=== PATIENT | female | born 1965 | race Caucasian/White ===

== ENCOUNTER 2019-01-07 18:32 | Inpatient (IN) | payer MEDICAID ==
[~2019-01-07] VITALS: Ht 172.7 cm; Wt 86.4 kg
[2019-01-07 19:09] LABS: BASOPHILS % (AUTO) 0.1 % (0-1); EOSINOPHILS % (AUTO) 0 % (0-6); HEMATOCRIT 39.6 % (35.0-45.0); HEMOGLOBIN 12.8 g/dl (12.0-16.0); LYMPHOCYTES # (AUTO) 2.1 X10'3 (1.1-4.8); LYMPHOCYTES % (AUTO) 35.3 % (21-51); MEAN CORPUSCULAR HEMOGLOBIN 25.4 PG (27.0-31.0); MEAN CORPUSCULAR HGB CONC 32.2 g/dL (33.0-36.5); MEAN CORPUSCULAR VOLUME 78.9 FL (78-98); MEAN PLATELET VOLUME 9.7 FL (7.4-10.4); MONOCYTES # (AUTO) 0.6 X10'3 (0-0.9); MONOCYTES % (AUTO) 10.2 % (2-12); NEUTROPHILS # (AUTO) 3.2 X10'3 (1.8-7.7); NEUTROPHILS % (AUTO) 54.4 % (42-75); PLATELET COUNT 189 X10'3 (140-440); RED BLOOD COUNT 5.02 X10'6 (4.20-5.60); WHITE BLOOD COUNT 5.9 X10'3 (4.5-11.0)
[2019-01-07 19:21] LABS: PARTIAL THROMBOPLASTIN TIME 28 SECONDS (22-32)
[2019-01-07 19:25] LABS: ALANINE AMINOTRANSFERASE 24 U/L (12-78); ALBUMIN/GLOBULIN RATIO 1.2 (1.1-1.5); ALKALINE PHOSPHATASE 99 IU/L (46-116); ANION GAP 9 (8-16); ASPARTATE AMINO TRANSFERASE 28 U/L (10-37); BILIRUBIN,TOTAL 0.4 MG/DL (0.1-1.0); BLOOD UREA NITROGEN 18 MG/DL (7-18); BUN/CREATININE RATIO 13.5 (6.6-38.0); CALCIUM 8.7 MG/DL (8.5-10.1); CHLORIDE 104 MMOL/L (99-107); CREATININE 1.33 MG/DL (0.40-0.90); GLUCOSE 87 MG/DL (70-104); POTASSIUM 4.2 MMOL/L (3.5-5.1); SODIUM 140 MMOL/L (135-145); TOTAL CARBON DIOXIDE 27.5 MMOL/L (24-32); TOTAL PROTEIN 7.4 G/DL (6.4-8.2); eGFR 42 ML/MIN
[2019-01-07 20:47] LABS: CHOL/HDL RATIO 3.9 (0.00-4.99); CHOLESTEROL 231 MG/DL (0-200); HDL CHOLESTEROL 59 MG/DL (35-60); LDL CHOLESTEROL 150 MG/DL (50-100); TRIGLYCERIDES 87 MG/DL (20-135)
[2019-01-07 21:21] LABS: D-DIMER 0.45 MG/L FEU (0-0.50)
[2019-01-07] MEDS ORDERED: acetaminophen 325mg tablet PO ONE (21:25)
--- NOTE | 2019-01-07 21:50 | NUR ---
Patient to CT, MD ordered Tylenol for pain and if that does not help will put in order for [place].
[2019-01-07] MEDS ORDERED: ALBU6.7H9 INH (22:49)
[2019-01-07] MEDS ORDERED: PRED5TAB PO (22:49)
[2019-01-07] MEDS ORDERED: CYAN-51 PO (22:49)
[2019-01-07] MEDS ORDERED: TRAM50TA2 PO (22:49)
[2019-01-07] MEDS ORDERED: LEVO88TA2 PO (22:49)
[2019-01-07] MEDS ORDERED: HYDR50CA PO (22:49)
[2019-01-07] MEDS ORDERED: MELO15TA13 PO (22:49)
[2019-01-07] MEDS ORDERED: SPIR25TA PO (22:49)
[2019-01-07] MEDS ORDERED: AMMO225L14 TOP (22:49)
[2019-01-07] MEDS ORDERED: MECL12.584 PO (22:49)
[2019-01-07] MEDS ORDERED: ERGO500041 PO (22:49)
[2019-01-07] MEDS ORDERED: MYCO500T PO (22:49)
[2019-01-07] MEDS ORDERED: EST1T PO (22:49)
[2019-01-07] MEDS ORDERED: CELE-193 PO (22:49)
[2019-01-07] MEDS ORDERED: FLUO20CA39 PO (22:49)
[2019-01-07] MEDS ORDERED: POTA8TAB8 PO (22:49)
[2019-01-07] MEDS ORDERED: OMEP40CA13 PO (22:49)
[2019-01-07] MEDS ORDERED: CHOL200074 PO (22:49)
[2019-01-07] MEDS ORDERED: FURO-149 PO (22:49)
[2019-01-07] MEDS ORDERED: ESOM40CA49 PO (22:49)
[2019-01-07] MEDS ORDERED: HYDR200T80 PO (22:49)
[2019-01-07] MEDS ORDERED: potassium Cl 20 mEq SR tablet PO PRN ×2 (22:50)
[2019-01-07] MEDS ORDERED: magnesium hydroxide 30ml (MOM) UD suspension PO PRN (22:50)
[2019-01-07] MEDS ORDERED: potassium CL 10mEq/100ml bag 100 ML IV PRN ×2 (22:50)
[2019-01-07] MEDS ORDERED: mag hydrox/Alum hydrox/simeth 30ml oral suspension PO PRN (22:50)
[2019-01-07] MEDS ORDERED: magnesium 4gm in 100ml NS 100 ML IV PRN (22:50)
[2019-01-07] MEDS ORDERED: acetaminophen 325mg tablet PO PRN ×2 (22:50)
[2019-01-07] MEDS ORDERED: ondansetron/PF 4mg/2ml inj IV PRN (22:50)
[2019-01-07] MEDS ORDERED: magnesium Cl slow-release 64mg tablet PO PRN (22:50)
[2019-01-07] MEDS ORDERED: magnesium 2GM in 50ml NS 50 ML IV PRN (22:50)
[2019-01-07] MEDS ORDERED: morphine 2 MG/ML inj. syringe IV ONE (23:35)
[2019-01-07] MEDS ORDERED: normal saline 1000ml 1,000 ML IV ONE (23:35)
[2019-01-07] MEDS ORDERED: AMMONIUM LACTATE TOP SCH (23:50)
[2019-01-07] MEDS ORDERED: HYDROcodone/acetaminophen 5mg/325mg tablet PO PRN (23:55)
[2019-01-07] MEDS ORDERED: albuterol 2.5 MG/3 ML nebule NEB PRN (23:55)
[2019-01-07] MEDS ORDERED: morphine 4 MG/ML inj SYRINge IV PRN (23:55)
[2019-01-08] VITALS (7 sets, daily range): BP systolic 93–125; BP diastolic 45–66
[2019-01-08] MEDS ORDERED: estradiol 1mg tablet PO ONE (01:55)
[2019-01-08] MEDS ORDERED: hydroxychloroquine 200mg tablet PO ONE (01:55)
[2019-01-08] MEDS ORDERED: FLUoxetine 20mg capsule PO ONE (01:55)
[2019-01-08] MEDS ORDERED: hydrOXYzine 25 MG tablet PO ONE (01:55)
[2019-01-08] MEDS ORDERED: celeCOXIB 100mg capsule PO ONE (01:55)
[2019-01-08] MEDS ORDERED: pantoprazole 40mg Tablet.DR PO ONE (01:55)
[2019-01-08] MEDS ORDERED: potassium chloride 8mEq ER tablet PO ONE (01:55)
[2019-01-08] MEDS ORDERED: mycophenolate mofetil 250mg capsule PO ONE (02:00)
[2019-01-08 06:02] LABS: BASOPHILS % (AUTO) 0.1 % (0-1); EOSINOPHILS % (AUTO) 0.1 % (0-6); HEMATOCRIT 34.5 % (35.0-45.0); HEMOGLOBIN 11.1 g/dl (12.0-16.0); LYMPHOCYTES # (AUTO) 2.9 X10'3 (1.1-4.8); LYMPHOCYTES % (AUTO) 54.4 % (21-51); MEAN CORPUSCULAR HEMOGLOBIN 25.4 PG (27.0-31.0); MEAN CORPUSCULAR HGB CONC 32.2 g/dL (33.0-36.5); MEAN CORPUSCULAR VOLUME 78.8 FL (78-98); MEAN PLATELET VOLUME 10.2 FL (7.4-10.4); MONOCYTES # (AUTO) 0.6 X10'3 (0-0.9); MONOCYTES % (AUTO) 11.5 % (2-12); NEUTROPHILS # (AUTO) 1.8 X10'3 (1.8-7.7); NEUTROPHILS % (AUTO) 33.9 % (42-75); PLATELET COUNT 173 X10'3 (140-440); RED BLOOD COUNT 4.38 X10'6 (4.20-5.60); RED CELL DISTRIBUTION WIDTH 15.1 % (11.5-14.5); WHITE BLOOD COUNT 5.3 X10'3 (4.5-11.0)
[2019-01-08 06:15] LABS: ALBUMIN 2.9 G/DL (3.4-5.0); ANION GAP 6 (8-16); BLOOD UREA NITROGEN 17 MG/DL (7-18); BUN/CREATININE RATIO 14.7 (6.6-38.0); CALCIUM 8.1 MG/DL (8.5-10.1); CHLORIDE 110 MMOL/L (99-107); CREATININE 1.16 MG/DL (0.40-0.90); GLUCOSE 88 MG/DL (70-104); MAGNESIUM 1.9 MG/DL (1.5-2.4); POTASSIUM 4.7 MMOL/L (3.5-5.1); SODIUM 143 MMOL/L (135-145); TOTAL CARBON DIOXIDE 27.3 MMOL/L (24-32); TROPONIN I < 0.04 NG/ML (0.0-0.05); eGFR 49 ML/MIN
[2019-01-08 06:57] LABS: PLATELET ESTIMATE NORMAL; TOTAL CELLS COUNTED 100
[2019-01-08] MEDS: predniSONE 5mg tablet PO SCH (08:00)
[2019-01-08] MEDS: aspirin 81mg tablet.DR PO SCH (08:00)
[2019-01-08] MEDS: cyanocobalamin 500mcg tablet PO SCH (08:00)
[2019-01-08] MEDS: enoxaparin 40mg/0.4ml syringe SQ SCH (08:00)
[2019-01-08] MEDS: vitamin D (cholecalciferol) 1,000 unit tablet PO SCH (08:00)
[2019-01-08] MEDS: K and/or MAG REPLACEMENT MC SCH (08:00)
[2019-01-08] MEDS: mycophenolate mofetil 250mg capsule PO SCH ×2 (08:00→20:16)
[2019-01-08] MEDS: levoTHYROXINE 88mcg tablet PO SCH (08:00)
[2019-01-08] MEDS ORDERED: MELOXICAM 7.5 MG PO SCH (08:00)
[2019-01-08] MEDS ORDERED: non-formulary drug (Esomeprazole Magnesium (Nexium) 1 CAP) PO SCH (08:00)
[2019-01-08] MEDS ORDERED: LORazepam 0.5 MG tablet PO PRN (09:45)
[2019-01-08] MEDS ORDERED: pneumococcal 23-VAL P-sac vacc 25 mcg/0.5ml vial IMVAC ONE (10:00)
[2019-01-08] MEDS: morphine 2 MG/ML inj. syringe IV PRN ×3 (10:00→19:42)
[2019-01-08] MEDS: furosemide 20MG tablet PO SCH (15:42)
--- NOTE | 2019-01-08 18:00 | NUR ---
Received report from Sadie MARTE. assumed care of patient.
--- NOTE | 2019-01-08 18:30 | NUR ---
Problems reprioritized. Patient report given, questions answered & plan of care reviewed with ESTUARDO Carter.
[2019-01-08] MEDS: FLUoxetine 20mg capsule PO SCH (20:16)
[2019-01-08] MEDS: potassium chloride 8mEq ER tablet PO SCH (20:17)
[2019-01-08] MEDS: hydrOXYzine 25 MG tablet PO SCH (20:17)
[2019-01-08] MEDS: hydroxychloroquine 200mg tablet PO SCH (20:18)
[2019-01-08] MEDS: pantoprazole 40mg Tablet.DR PO SCH (20:18)
[2019-01-08] MEDS: celeCOXIB 100mg capsule PO SCH (20:18)
[2019-01-08] MEDS: estradiol 1mg tablet PO SCH (20:21)
[2019-01-09] VITALS (7 sets, daily range): BP systolic 98–110; BP diastolic 51–84
--- NOTE | 2019-01-09 06:00 | NUR ---
Gave report to Sadie MARTE.
--- NOTE | 2019-01-09 06:15 | NUR ---
Patient in room ORTHO 4012. I have received report from and had the opportunity to ask questions and assume patient care ESTUARDO Carter.
[2019-01-09] MEDS: K and/or MAG REPLACEMENT MC SCH (08:00)
[2019-01-09] MEDS: mycophenolate mofetil 250mg capsule PO SCH ×2 (08:00→20:34)
[2019-01-09 08:02] LABS: BASOPHILS % (AUTO) 0.1 % (0-1); EOSINOPHILS % (AUTO) 0 % (0-6); HEMATOCRIT 33.2 % (35.0-45.0); HEMOGLOBIN 10.7 g/dl (12.0-16.0); LYMPHOCYTES # (AUTO) 2.4 X10'3 (1.1-4.8); LYMPHOCYTES % (AUTO) 47.1 % (21-51); MEAN CORPUSCULAR HEMOGLOBIN 25.7 PG (27.0-31.0); MEAN CORPUSCULAR HGB CONC 32.3 g/dL (33.0-36.5); MEAN CORPUSCULAR VOLUME 79.5 FL (78-98); MEAN PLATELET VOLUME 10.1 FL (7.4-10.4); MONOCYTES # (AUTO) 0.6 X10'3 (0-0.9); MONOCYTES % (AUTO) 10.9 % (2-12); NEUTROPHILS # (AUTO) 2.1 X10'3 (1.8-7.7); NEUTROPHILS % (AUTO) 41.9 % (42-75); PLATELET COUNT 156 X10'3 (140-440); RED BLOOD COUNT 4.17 X10'6 (4.20-5.60); RED CELL DISTRIBUTION WIDTH 15.7 % (11.5-14.5); WHITE BLOOD COUNT 5.1 X10'3 (4.5-11.0)
[2019-01-09] MEDS: furosemide 20MG tablet PO SCH (08:27)
[2019-01-09 08:28] LABS: ALBUMIN 2.8 G/DL (3.4-5.0); ANION GAP 3 (8-16); BLOOD UREA NITROGEN 17 MG/DL (7-18); BUN/CREATININE RATIO 13.4 (6.6-38.0); CALCIUM 7.8 MG/DL (8.5-10.1); CHLORIDE 110 MMOL/L (99-107); CREATININE 1.27 MG/DL (0.40-0.90); GLUCOSE 86 MG/DL (70-104); POTASSIUM 4.4 MMOL/L (3.5-5.1); SODIUM 143 MMOL/L (135-145); TOTAL CARBON DIOXIDE 29.9 MMOL/L (24-32); eGFR 44 ML/MIN
[2019-01-09] MEDS: aspirin 81mg tablet.DR PO SCH (08:28)
[2019-01-09] MEDS: predniSONE 5mg tablet PO SCH (08:28)
[2019-01-09] MEDS: cyanocobalamin 500mcg tablet PO SCH (08:28)
[2019-01-09] MEDS: pantoprazole 40mg Tablet.DR PO SCH ×2 (08:28→20:35)
[2019-01-09] MEDS: levoTHYROXINE 88mcg tablet PO SCH (08:28)
[2019-01-09] MEDS: vitamin D (cholecalciferol) 1,000 unit tablet PO SCH (08:29)
[2019-01-09] MEDS ORDERED: aspirin 325mg tablet PO SCH (08:30)
[2019-01-09] MEDS: enoxaparin 40mg/0.4ml syringe SQ SCH (08:35)
[2019-01-09] MEDS: morphine 2 MG/ML inj. syringe IV PRN (16:19)
[2019-01-09] MEDS: atorvastatin 20mg tablet PO SCH (17:11)
[2019-01-09] MEDS: celeCOXIB 100mg capsule PO SCH (20:34)
[2019-01-09] MEDS: hydroxychloroquine 200mg tablet PO SCH (20:34)
[2019-01-09] MEDS: estradiol 1mg tablet PO SCH (20:34)
[2019-01-09] MEDS: FLUoxetine 20mg capsule PO SCH (20:35)
[2019-01-09] MEDS: potassium chloride 8mEq ER tablet PO SCH (20:35)
[2019-01-09] MEDS: hydrOXYzine 25 MG tablet PO SCH (20:35)
[2019-01-09] MEDS ORDERED: TRAZ150T78 PO (22:26)
[2019-01-09] MEDS ORDERED: traZODone 150mg tablet PO SCH (22:30)
--- NOTE | 2019-01-09 22:31 | NUR ---
pt requested to have home med trazadone reordered and keep IVF at 5ml/hr for vein. Dr. Ramirez ok'd trazadone but req to SL IVF.
[2019-01-10 02:00] VITALS: BP 110/47
[2019-01-10 06:07] LABS: BASOPHILS % (AUTO) 0.1 % (0-1); EOSINOPHILS % (AUTO) 0.1 % (0-6); HEMATOCRIT 34.4 % (35.0-45.0); HEMOGLOBIN 11.2 g/dl (12.0-16.0); LYMPHOCYTES # (AUTO) 2.7 X10'3 (1.1-4.8); LYMPHOCYTES % (AUTO) 39.3 % (21-51); MEAN CORPUSCULAR HEMOGLOBIN 25.6 PG (27.0-31.0); MEAN CORPUSCULAR HGB CONC 32.6 g/dL (33.0-36.5); MEAN CORPUSCULAR VOLUME 78.4 FL (78-98); MEAN PLATELET VOLUME 10.1 FL (7.4-10.4); MONOCYTES # (AUTO) 0.7 X10'3 (0-0.9); MONOCYTES % (AUTO) 9.5 % (2-12); NEUTROPHILS # (AUTO) 3.5 X10'3 (1.8-7.7); PLATELET COUNT 187 X10'3 (140-440); RED BLOOD COUNT 4.39 X10'6 (4.20-5.60); RED CELL DISTRIBUTION WIDTH 15.5 % (11.5-14.5); WHITE BLOOD COUNT 6.9 X10'3 (4.5-11.0)
[2019-01-10 06:17] LABS: ALBUMIN 2.8 G/DL (3.4-5.0); ANION GAP 8 (8-16); BLOOD UREA NITROGEN 18 MG/DL (7-18); BUN/CREATININE RATIO 15.8 (6.6-38.0); CALCIUM 8.2 MG/DL (8.5-10.1); CHLORIDE 109 MMOL/L (99-107); CREATININE 1.14 MG/DL (0.40-0.90); GLUCOSE 92 MG/DL (70-104); MAGNESIUM 1.9 MG/DL (1.5-2.4); POTASSIUM 4.3 MMOL/L (3.5-5.1); SODIUM 144 MMOL/L (135-145); TOTAL CARBON DIOXIDE 27.3 MMOL/L (24-32); eGFR 50 ML/MIN
[2019-01-10 06:20] VITALS: BP 103/56
--- NOTE | 2019-01-10 06:20 | NUR ---
Patient in room ORTHO 4012. I have received report from Bridger and had the opportunity to ask questions and assume patient care.
[2019-01-10] MEDS: K and/or MAG REPLACEMENT MC SCH (08:00)
[2019-01-10 08:18] VITALS: BP 118/63
[2019-01-10] MEDS: mycophenolate mofetil 250mg capsule PO SCH (08:18)
[2019-01-10] MEDS: aspirin 81mg tablet.DR PO SCH (08:18)
[2019-01-10] MEDS: levoTHYROXINE 88mcg tablet PO SCH (08:19)
[2019-01-10] MEDS: furosemide 20MG tablet PO SCH (08:19)
[2019-01-10] MEDS: atorvastatin 20mg tablet PO SCH (08:19)
[2019-01-10] MEDS: predniSONE 5mg tablet PO SCH (08:19)
[2019-01-10] MEDS: vitamin D (cholecalciferol) 1,000 unit tablet PO SCH (08:20)
[2019-01-10] MEDS: cyanocobalamin 500mcg tablet PO SCH (08:20)
[2019-01-10] MEDS: enoxaparin 40mg/0.4ml syringe SQ SCH (08:21)
[2019-01-10 10:11] VITALS: BP 105/61
[2019-01-10] MEDS: morphine 2 MG/ML inj. syringe IV PRN (10:29)
[2019-01-10] MEDS ORDERED: ASPI-1071 PO (14:52)
[2019-01-10] MEDS ORDERED: ATOR80TA PO (14:52)
--- NOTE | 2019-01-10 16:58 | NUR ---
Reviewed discharge instructions with pt and spouse. Pt and spouse verbalized understanding. Pt is alert, oriented and does not have c/o pain at this time. Pt was provided a walker upon discharge. Pt was wheeled downstairs by staff to be driven home by spouse. Rx was called into the [facility] in [place], [place].
[2019-01-11] MEDS ORDERED: ergocalciferol (Vitamin D) 50,000 unit capsule PO SCH (08:00)
== END 2019-01-10 16:50 | disposition home or self-care (01) | DRG 45 ==
LOC: ER 18:33 → ORTHO 4S 22:51 → INTOOBSV 01-08 00:11 → UNDOADMOB 01-08 00:11 → OBSVTOIN 01-08 00:11 → CMPBEDREQ 01-08 00:36
PROVIDERS: ADMIT Hospitalist; ATTEND Family Medicine
PROC: 4A10X4Z Monitoring of Central Nervous Electrical Activity, External Approach (ICD-10-PCS; principal; 2019-01-10)
DX: I63.9 Cerebral infarction, unspecified (principal); N17.9 Acute kidney failure, unspecified; M32.9 Systemic lupus erythematosus, unspecified; R56.9 Unspecified convulsions; E86.0 Dehydration; E03.9 Hypothyroidism, unspecified; E78.5 Hyperlipidemia, unspecified; G89.4 Chronic pain syndrome; M21.379 Foot drop, unspecified foot; N18.9 Chronic kidney disease, unspecified; M19.90 Unspecified osteoarthritis, unspecified site; Z79.82 Long term (current) use of aspirin; Z88.0 Allergy status to penicillin; Z79.899 Other long term (current) drug therapy
CPT/HCPCS: 36415; 70450; 70544; 70547; 70551; 71045; 72141; 72146; 72148; 80048; 80053; 80061; 83735; 84439; 84443; 84484; 85025; 85379; 85610; 85730; 87081; 92508; 92616; 93005; 93306; 94640; 94760; 95816; 96374; 97110; 97116; 97163; 97530; 99285; G0378; J1650; J2270; J7512; J7517; Z7610

== ENCOUNTER 2020-05-23 23:08 | Emergency (ER) | payer MEDICAID ==
[~2020-05-23] VITALS: Ht 170.2 cm; Wt 89.0 kg
[~2020-05-23 23:08] MED LIST: ALBU6.7H9 INH; AMMO225L14 TOP; ASPI-1071 PO; CELE-193 PO; CHOL200074 PO; CYAN-51 PO; ERGO500041 PO; ESOM40CA49 PO; EST1T PO; FLUO20CA39 PO; FURO-149 PO; HYDR200T80 PO; HYDR50CA PO; LEVO88TA2 PO; MECL-184 PO; MELO15TA13 PO; MYCO500T PO; OMEP40CA13 PO; POTA8TAB8 PO; PRED5TAB PO; SPIR25TA PO; TRAM50TA2 PO; TRAZ150T78 PO
[2020-05-23] MEDS ORDERED: HYDROcodone/acetaminophen 5mg/325mg tablet PO ONE (23:20)
[2020-05-23] MEDS ORDERED: ipratropium/albuterol 3ml nebule NEB PRN (23:25)
[2020-05-23] MEDS ORDERED: albuterol 2.5 MG/3 ML nebule NEB ONE (23:25)
[2020-05-23] MEDS ORDERED: ondansetron 4mg rapidly disintigrating tab PO ONE (23:35)
[2020-05-23 23:56] LABS: BASOPHILS % (AUTO) 0.1 % (0-1); EOSINOPHILS % (AUTO) 0.1 % (0-6); HEMATOCRIT 39.9 % (35.0-45.0); LYMPHOCYTES # (AUTO) 2.4 X10'3 (1.1-4.8); LYMPHOCYTES % (AUTO) 30.3 % (21-51); MEAN CORPUSCULAR HEMOGLOBIN 26.5 PG (27.0-31.0); MEAN CORPUSCULAR HGB CONC 32.6 g/dL (33.0-36.5); MEAN CORPUSCULAR VOLUME 81.3 FL (78-98); MEAN PLATELET VOLUME 9.6 FL (7.4-10.4); MONOCYTES # (AUTO) 0.9 X10'3 (0-0.9); MONOCYTES % (AUTO) 11.7 % (2-12); NEUTROPHILS # (AUTO) 4.6 X10'3 (1.8-7.7); NEUTROPHILS % (AUTO) 57.8 % (42-75); PLATELET COUNT 210 X10'3 (140-440); RED BLOOD COUNT 4.91 X10'6 (4.20-5.60); WHITE BLOOD COUNT 7.9 X10'3 (4.5-11.0)
[2020-05-24 00:19] LABS: ALANINE AMINOTRANSFERASE 33 U/L (12-78); ALBUMIN 3.9 G/DL (3.4-5.0); ALBUMIN/GLOBULIN RATIO 1.1 (1.1-1.5); ANION GAP 7 (8-16); ASPARTATE AMINO TRANSFERASE 32 U/L (10-37); BILIRUBIN,TOTAL 0.3 MG/DL (0.1-1.0); BLOOD UREA NITROGEN 14 MG/DL (7-18); BUN/CREATININE RATIO 10.1 (6.6-38.0); CALCIUM 8.8 MG/DL (8.5-10.1); CHLORIDE 101 MMOL/L (99-107); CREATININE 1.38 MG/DL (0.40-0.90); GLUCOSE 105 MG/DL (70-104); MAGNESIUM 1.6 MG/DL (1.5-2.4); POTASSIUM 3.3 MMOL/L (3.5-5.1); SODIUM 140 MMOL/L (135-145); TOTAL CARBON DIOXIDE 31.8 MMOL/L (24-32); TOTAL PROTEIN 7.4 G/DL (6.4-8.2); eGFR 40 ML/MIN
[2020-05-24 00:28] LABS: ALKALINE PHOSPHATASE 96 IU/L (46-116)
[2020-05-24] MEDS ORDERED: ibuprofen 200mg tablet PO ONE ×2 (00:30→00:40)
[2020-05-24 00:34] VITALS: BP 132/70
[2020-05-24] MEDS ORDERED: LORazepam 1 MG tablet PO ONE (00:55)
[2020-05-24] MEDS ORDERED: LORA-269 PO (01:16)
== END 2020-05-24 01:15 | disposition home or self-care (01) ==
LOC: ER 23:08
DX: R07.89 Other chest pain (principal); E78.00 Pure hypercholesterolemia, unspecified; Z86.73 Personal history of transient ischemic attack (TIA), and cerebral infarction without residual deficits; Z88.0 Allergy status to penicillin; Z79.82 Long term (current) use of aspirin; Z79.899 Other long term (current) drug therapy
CPT/HCPCS: 36415; 71045; 80053; 83735; 83880; 84484; 85025; 93005; 94640; 94760; 99285

== ENCOUNTER 2020-10-08 23:27 | Emergency (ER) | payer MEDICAID ==
[~2020-10-08] VITALS: Ht 172.7 cm; Wt 86.1 kg
[~2020-10-08 23:27] MED LIST changes: +LORA-269 PO; -MECL-184 PO; +MECL-231 PO; -OMEP40CA13 PO; +OMEP40CA21 PO
[2020-10-09 00:03] LABS: URINE HCG NEGATIVE (NEG)
[2020-10-09 00:12] LABS: ALANINE AMINOTRANSFERASE 12 U/L (12-78); ALBUMIN 3.7 G/DL (3.4-5.0); ALBUMIN/GLOBULIN RATIO 1.1 (1.1-1.5); ALKALINE PHOSPHATASE 89 IU/L (46-116); ANION GAP 8 (8-16); ASPARTATE AMINO TRANSFERASE 23 U/L (10-37); BILIRUBIN,TOTAL 0.5 MG/DL (0.1-1.0); BLOOD UREA NITROGEN 13 MG/DL (7-18); BUN/CREATININE RATIO 11.3 (6.6-38.0); CALCIUM 8.6 MG/DL (8.5-10.1); CHLORIDE 105 MMOL/L (99-107); CREATININE 1.15 MG/DL (0.40-0.90); GLUCOSE 103 MG/DL (70-104); LIPASE 190 U/L (73-393); POTASSIUM 3.6 MMOL/L (3.5-5.1); SODIUM 141 MMOL/L (135-145); TOTAL CARBON DIOXIDE 28.4 MMOL/L (24-32); TOTAL PROTEIN 7.2 G/DL (6.4-8.2); eGFR 49 ML/MIN
[2020-10-09 00:47] VITALS: BP 130/78
[2020-10-09 01:02] LABS: BASOPHILS % (AUTO) 0.3 % (0-1); EOSINOPHILS % (AUTO) 0.1 % (0-6); HEMOGLOBIN 13.1 g/dl (12.0-16.0); LYMPHOCYTES # (AUTO) 2.8 X10'3 (1.1-4.8); LYMPHOCYTES % (AUTO) 34.1 % (21-51); MEAN CORPUSCULAR HEMOGLOBIN 25.9 PG (27.0-31.0); MEAN CORPUSCULAR HGB CONC 32.7 g/dL (33.0-36.5); MEAN CORPUSCULAR VOLUME 79.2 FL (78-98); MEAN PLATELET VOLUME 9.9 FL (7.4-10.4); MONOCYTES # (AUTO) 0.8 X10'3 (0-0.9); MONOCYTES % (AUTO) 10.2 % (2-12); NEUTROPHILS # (AUTO) 4.5 X10'3 (1.8-7.7); NEUTROPHILS % (AUTO) 55.3 % (42-75); PLATELET COUNT 242 X10'3 (140-440); RED BLOOD COUNT 5.05 X10'6 (4.20-5.60); RED CELL DISTRIBUTION WIDTH 15.4 % (11.5-14.5); WHITE BLOOD COUNT 8.2 X10'3 (4.5-11.0)
[2020-10-09 02:15] LABS: CLARITY,URINE CLOUDY (Clear); GLUCOSE, URINE NEGATIVE (Neg); LEUKOCYTE ESTERASE ,URINE MODERATE (Neg); OCCULT BLOOD,URINE MODERATE (Neg); PH,URINE 5.5 (4.8-8.0)
[2020-10-09 02:20] LABS: UA COLLECTION TYPE NON-SPECIFIED
[2020-10-09 02:21] LABS: COLOR,URINE ORANGE (Yellow)
[2020-10-09 02:24] LABS: BACTERIA,URINE FEW /HPF (Neg); RBC,URINE NONE SEEN /HPF (0-2); WBC,URINE 30-50 /HPF (0-4)
[2020-10-09 02:25] LABS: HYALINE CASTS 0-3 /LPF (NEGATIVE); MUCUS STRANDS FEW /LPF (Neg); SQUAMOUS EPITHELIAL CELL,UR FEW /LPF (FEW)
[2020-10-09] MEDS ORDERED: CefTRIAXone/D5W-Rocephin 1gm 50 ML IV ONE (02:25)
[2020-10-09] MEDS ORDERED: normal saline 1000ML IV soln IVB ONE (02:25)
[2020-10-09] MEDS ORDERED: ondansetron/PF 4mg/2ml inj IV ONE (03:05)
[2020-10-09] MEDS ORDERED: morphine 4 MG/ML inj SYRINge IV ONE (03:05)
[2020-10-09] MEDS ORDERED: ketorolac tromethamine 15mg/ml inj. IV ONE (03:05)
[2020-10-09] MEDS ORDERED: phenazopyridine 100mg tablet PO ONE (05:00)
[2020-10-09] MEDS ORDERED: PHEN-716 PO (05:14)
[2020-10-09] MEDS ORDERED: CEPH250T PO (05:14)
== END 2020-10-09 05:31 | disposition home or self-care (01) ==
LOC: ER 23:28
DX: N39.0 Urinary tract infection, site not specified (principal); R10.30 Lower abdominal pain, unspecified; R35.0 Frequency of micturition; R11.10 Vomiting, unspecified; E78.00 Pure hypercholesterolemia, unspecified; Z86.73 Personal history of transient ischemic attack (TIA), and cerebral infarction without residual deficits; Z90.710 Acquired absence of both cervix and uterus; Z88.0 Allergy status to penicillin; Z79.82 Long term (current) use of aspirin; Z79.2 Long term (current) use of antibiotics; Z79.899 Other long term (current) drug therapy
CPT/HCPCS: 36415; 74176; 80053; 81001; 81025; 83690; 85025; 87077; 87088; 87186; 96365; 96375; 99284; J0696; J1885; J2270; J2405; J7030

== ENCOUNTER 2020-12-20 21:45 | Inpatient (IN) | payer MEDICAID ==
[~2020-12-20] VITALS: Ht 172.7 cm; Wt 97.0 kg
[~2020-12-20 21:45] MED LIST changes: +CEPH250T PO; +PHEN-716 PO
--- NOTE | 2020-12-20 23:21 | NUR ---
Patient woke up this morning with dizziness, felt like the room was spinning, some nausea without emesis and heart palpitations for a couple of days prior. Took Meclazine without relief. Hx of vertigo. Status post hernia repair 1 week ago. Hx of pericarditis.
[2020-12-20] MEDS ORDERED: normal saline 1000ml 1,000 ML IV ONE (23:40)
[2020-12-20] MEDS ORDERED: oxyCODONE/APAP 5-325mg tablet PO ONE (23:45)
[2020-12-20 23:59] LABS: BASOPHILS % (AUTO) 0.3 % (0-1); EOSINOPHILS % (AUTO) 0.2 % (0-6); HEMATOCRIT 36.7 % (35.0-45.0); HEMOGLOBIN 11.8 g/dl (12.0-16.0); LYMPHOCYTES # (AUTO) 2.2 X10'3 (1.1-4.8); LYMPHOCYTES % (AUTO) 34.8 % (21-51); MEAN CORPUSCULAR HEMOGLOBIN 25.5 PG (27.0-31.0); MEAN CORPUSCULAR HGB CONC 32.2 g/dL (33.0-36.5); MEAN CORPUSCULAR VOLUME 79.3 FL (78-98); MEAN PLATELET VOLUME 9.9 FL (7.4-10.4); MONOCYTES # (AUTO) 1.2 X10'3 (0-0.9); MONOCYTES % (AUTO) 18.1 % (2-12); NEUTROPHILS % (AUTO) 46.6 % (42-75); PLATELET COUNT 225 X10'3 (140-440); RED BLOOD COUNT 4.64 X10'6 (4.20-5.60); RED CELL DISTRIBUTION WIDTH 15.5 % (11.5-14.5); WHITE BLOOD COUNT 6.4 X10'3 (4.5-11.0)
[2020-12-21 00:23] LABS: ALANINE AMINOTRANSFERASE 16 U/L (12-78); ALBUMIN 3.4 G/DL (3.4-5.0); ALKALINE PHOSPHATASE 101 IU/L (46-116); ANION GAP 8 (8-16); ASPARTATE AMINO TRANSFERASE 18 U/L (10-37); BILIRUBIN,TOTAL 0.2 MG/DL (0.1-1.0); BLOOD UREA NITROGEN 11 MG/DL (7-18); BUN/CREATININE RATIO 8.5 (6.6-38.0); CALCIUM 8.3 MG/DL (8.5-10.1); CHLORIDE 106 MMOL/L (99-107); CREATININE 1.29 MG/DL (0.40-0.90); GLUCOSE 92 MG/DL (70-104); POTASSIUM 3.8 MMOL/L (3.5-5.1); SODIUM 141 MMOL/L (135-145); TOTAL CARBON DIOXIDE 27.4 MMOL/L (24-32); TOTAL PROTEIN 6.8 G/DL (6.4-8.2); eGFR 43 ML/MIN
[2020-12-21 00:24] LABS: MAGNESIUM 1.9 MG/DL (1.5-2.4)
[2020-12-21] MEDS ORDERED: ondansetron/PF 4mg/2ml inj IV ONE (00:40)
[2020-12-21] MEDS ORDERED: magnesium 2GM in 50ml NS 50 ML IV ONE (01:05)
--- NOTE | 2020-12-21 01:50 | NUR ---
Per Dr. Villagomez, not necessary to do repeat troponins. Plan of care explained to patient and her .
[2020-12-21] MEDS ORDERED: iohexol 350MG/ML 100ml bottle IV ONE (03:54)
[2020-12-21] MEDS ORDERED: LORazepam 2 mg/ml vial IV ONE (04:40)
[2020-12-21] MEDS ORDERED: TRAZ-256 PO (05:18)
[2020-12-21] MEDS ORDERED: ZOLP6.252 PO (05:19)
[2020-12-21] MEDS ORDERED: MONT10TA32 PO (05:20)
[2020-12-21] MEDS ORDERED: ATOR80TA PO (05:21)
[2020-12-21] MEDS ORDERED: DOCU-148 PO (05:22)
[2020-12-21] MEDS ORDERED: ALEN70TA80 PO (05:26)
[2020-12-21] MEDS ORDERED: DICL100G30 TOP (05:26)
[2020-12-21] MEDS ORDERED: magnesium hydroxide 30ml (MOM) UD suspension PO PRN (06:20)
[2020-12-21] MEDS ORDERED: potassium Cl 20 mEq SR tablet PO PRN ×2 (06:20)
[2020-12-21] MEDS ORDERED: mag hydrox/Alum hydrox/simeth 30ml oral suspension PO PRN (06:20)
[2020-12-21] MEDS ORDERED: magnesium 4gm in 100ml NS 100 ML IV PRN (06:20)
[2020-12-21] MEDS ORDERED: magnesium Cl slow-release 64mg tablet PO PRN (06:20)
[2020-12-21] MEDS ORDERED: acetaminophen 325mg tablet PO PRN (06:20)
[2020-12-21] MEDS ORDERED: potassium Cl 40MEQ/1/2NS 520ml 520 ML IV PRN ×2 (06:20)
[2020-12-21] MEDS ORDERED: magnesium 2GM in 50ml NS 50 ML IV PRN (06:20)
[2020-12-21] MEDS ORDERED: ASPI81TA52 PO (06:52)
[2020-12-21] MEDS ORDERED: OXYB-58 PO (07:02)
[2020-12-21] MEDS ORDERED: SENN-283 PO (07:03)
[2020-12-21] MEDS ORDERED: LEVO100T PO (07:03)
[2020-12-21] MEDS: normal saline 1000ml 1,000 ML IV SCH ×2 (07:51→17:23)
[2020-12-21] MEDS ORDERED: docusate sod 100mg capsule PO SCH (08:00)
[2020-12-21] MEDS: K and/or MAG REPLACEMENT MC SCH (08:00)
[2020-12-21] MEDS: heparin, porcine 5000 units/ml vial SQ SCH ×2 (08:04→22:30)
[2020-12-21 08:12] LABS: CLARITY,URINE CLEAR (Clear); COLOR,URINE YELLOW (Yellow); GLUCOSE, URINE NEGATIVE (Neg); KETONES,URINE NEGATIVE (Neg); LEUKOCYTE ESTERASE ,URINE NEGATIVE (Neg); NITRITES, URINE NEGATIVE (Neg); OCCULT BLOOD,URINE NEGATIVE (Neg); PH,URINE 5.5 (4.8-8.0); PROTEIN,URINE NEGATIVE (Neg); UROBILINOGEN,URINE 0.2 E.U/dL (0.2-1.0)
[2020-12-21 08:23] LABS: UA COLLECTION TYPE VOIDED
[2020-12-21] MEDS ORDERED: MECL-231 PO (08:32)
[2020-12-21] MEDS: ondansetron/PF 4mg/2ml inj IV PRN ×2 (08:35→14:39)
[2020-12-21] MEDS: meclizine 12.5mg tablet PO SCH ×2 (12:18→22:24)
[2020-12-21 14:25] VITALS: BP 118/63
--- NOTE | 2020-12-21 14:30 | NUR ---
RECEIVED REPORT FROM ESTUARDO CARVER IN ER. PT ARRIVED TO FLOOR AT 1425 IN ROOM 4009B
--- NOTE | 2020-12-21 16:45 | NUR ---
Page Sent PAGER ID: [phone] MESSAGE: TRAVIS [id number] RE: TAYLOR MILLER [id number] CAN YOU PLEASE ADDRESS PT'S MED REC? AND PT IS REQUESTING PAIN MEDS AND ONLY HAS TYLENOL ORDERED. THANK YOU!
[2020-12-21] MEDS ORDERED: oxyCODONE/APAP 10/325mg tablet PO PRN (17:20)
[2020-12-21] MEDS: acetaminophen 325mg tablet PO PRN (17:22)
[2020-12-21 18:30] VITALS: BP 122/52
--- NOTE | 2020-12-21 18:34 | NUR ---
Problems reprioritized. Patient report given, questions answered & plan of care reviewed with ESTUARDO ALEXIS.
[2020-12-21] MEDS ORDERED: oxybutynin 5mg tablet PO PRN (19:35)
[2020-12-21] MEDS ORDERED: albuterol 2.5 MG/3 ML nebule NEB PRN (19:35)
[2020-12-21] MEDS ORDERED: pantoprazole 40mg Tablet.DR PO SCH (21:00)
[2020-12-21] MEDS ORDERED: atorvastatin 20mg tablet PO SCH (21:00)
[2020-12-21] MEDS ORDERED: mycophenolate mofetil 250mg capsule PO SCH (21:00)
[2020-12-21] MEDS ORDERED: zolpidem 5mg tablet PO PRN (21:00)
[2020-12-21] MEDS ORDERED: aspirin 81mg, enteric-coated 1 TAB TABLET.DR PO SCH (21:00)
[2020-12-21] MEDS ORDERED: potassium chloride 8mEq ER tablet PO SCH (21:00)
[2020-12-21] MEDS ORDERED: traZODone 150mg tablet PO SCH (21:00)
[2020-12-21] MEDS ORDERED: hydroxychloroquine 200mg tablet PO SCH (21:00)
[2020-12-21 22:00] VITALS: BP 122/52
[2020-12-21] MEDS: sennosides/docusate sodium tablet PO SCH (22:42)
[2020-12-21] MEDS: predniSONE 5mg tablet PO SCH (22:48)
[2020-12-22 06:00] VITALS: BP 123/66
--- NOTE | 2020-12-22 06:55 | NUR ---
Patient in room ORTHO 4009B. I have received report from ESTUARDO ALEXIS and had the opportunity to ask questions and assume patient care.
[2020-12-22 07:01] LABS: BASOPHILS % (AUTO) 0.2 % (0-1); EOSINOPHILS % (AUTO) 0.5 % (0-6); HEMATOCRIT 31.3 % (35.0-45.0); HEMOGLOBIN 10.1 g/dl (12.0-16.0); LYMPHOCYTES % (AUTO) 38.6 % (21-51); MEAN CORPUSCULAR HEMOGLOBIN 25.8 PG (27.0-31.0); MEAN CORPUSCULAR HGB CONC 32.4 g/dL (33.0-36.5); MEAN CORPUSCULAR VOLUME 79.4 FL (78-98); MEAN PLATELET VOLUME 9.3 FL (7.4-10.4); MONOCYTES # (AUTO) 0.8 X10'3 (0-0.9); MONOCYTES % (AUTO) 14.2 % (2-12); NEUTROPHILS # (AUTO) 2.5 X10'3 (1.8-7.7); NEUTROPHILS % (AUTO) 46.5 % (42-75); PLATELET COUNT 193 X10'3 (140-440); RED BLOOD COUNT 3.94 X10'6 (4.20-5.60); RED CELL DISTRIBUTION WIDTH 15.7 % (11.5-14.5); WHITE BLOOD COUNT 5.3 X10'3 (4.5-11.0)
[2020-12-22 07:20] LABS: ALANINE AMINOTRANSFERASE 14 U/L (12-78); ALBUMIN 2.5 G/DL (3.4-5.0); ALBUMIN/GLOBULIN RATIO 0.9 (1.1-1.5); ALKALINE PHOSPHATASE 80 IU/L (46-116); ANION GAP 6 (8-16); ASPARTATE AMINO TRANSFERASE 17 U/L (10-37); BILIRUBIN,TOTAL 0.2 MG/DL (0.1-1.0); BLOOD UREA NITROGEN 9 MG/DL (7-18); BUN/CREATININE RATIO 9.7 (6.6-38.0); CALCIUM 7.8 MG/DL (8.5-10.1); CHLORIDE 114 MMOL/L (99-107); CHOL/HDL RATIO 2.5 (0.00-4.99); CHOLESTEROL 100 MG/DL (0-200); CREATININE 0.93 MG/DL (0.40-0.90); GLUCOSE 91 MG/DL (70-104); HDL CHOLESTEROL 40 MG/DL (35-60); LDL CHOLESTEROL 37 MG/DL (50-100); MAGNESIUM 2.1 MG/DL (1.5-2.4); POTASSIUM 4.6 MMOL/L (3.5-5.1); SODIUM 145 MMOL/L (135-145); TOTAL CARBON DIOXIDE 25.1 MMOL/L (24-32); TOTAL PROTEIN 5.3 G/DL (6.4-8.2); TRIGLYCERIDES 87 MG/DL (20-135); eGFR 63 ML/MIN
[2020-12-22] MEDS: sennosides/docusate sodium tablet PO SCH (07:20)
[2020-12-22] MEDS: predniSONE 5mg tablet PO SCH (07:21)
[2020-12-22] MEDS: meclizine 12.5mg tablet PO SCH ×2 (07:21→13:25)
[2020-12-22] MEDS: heparin, porcine 5000 units/ml vial SQ SCH (07:21)
[2020-12-22] MEDS: normal saline 1000ml 1,000 ML IV SCH ×2 (07:28→12:20)
[2020-12-22 08:00] VITALS: BP_SYST 103; BP_SYST 112; BP_SYST 117; BP_SYST 125; BP_SYST 126; BP_DIAS 60; BP_DIAS 61; BP_DIAS 64; BP_DIAS 73; BP_DIAS 79
[2020-12-22] MEDS ORDERED: FLUoxetine 20mg capsule PO SCH (08:00)
[2020-12-22] MEDS ORDERED: montelukast 10mg tablet PO SCH (08:00)
[2020-12-22] MEDS ORDERED: levoTHYROXINE 100mcg tablet PO SCH (08:00)
[2020-12-22] MEDS ORDERED: cyanocobalamin 500mcg tablet PO SCH (08:00)
[2020-12-22] MEDS: K and/or MAG REPLACEMENT MC SCH (08:00)
[2020-12-22] MEDS: acetaminophen 325mg tablet PO PRN (09:32)
[2020-12-22 10:00] VITALS: BP 110/59
--- NOTE | 2020-12-22 10:59 | NUR ---
Page Sent PAGER ID: [phone] MESSAGE: TRAVIS [id number] RE: TAYLOR MORALES [id number] PT IS GOING TO MRI, CAN I GET ORDER FOR ATIVAN FOR CLAUSTROPHOBIA PLEASE? THANKS!
[2020-12-22 14:00] VITALS: BP 124/67
--- NOTE | 2020-12-22 16:02 | NUR ---
Page Sent PAGER ID: [phone] MESSAGE: TRAVIS [id number] RE: TAYLOR MILLER [id number] PT ASKING IF SHE IS D/C TODAY? SHE HAS MRI ORDERED BUT OUR MRI IS CURRENTLY DOWN. DO YOU WANT HER TO WAIT ANOTHER NIGHT AND HAVE IT TOMORROW? THANK YOU
--- NOTE | 2020-12-22 16:41 | NUR ---
Page Sent PAGER ID: [phone] MESSAGE: TRAVIS [id number] RE: TAYLOR MILLER [id number] PT WANTS TO LEAVE AMA AFTER SPEAKING WITH HER. WOULD YOU LIKE TO D/C OR JUST HAVE HER LEAVE AMA? THANK YOU!
--- NOTE | 2020-12-22 17:35 | NUR ---
PT ADVISED NOT TO LEAVE AMA DUE TO POSSIBILITY OF HAVING HAD A STROKE. MD WANTED AN MRI BUT PT DID NOT WANT TO WAIT UNTIL THE NEXT DAY. MD AWARE OF PT LEAVING AMA. RN STRONGLY ADVISED PT BEFORE LEAVING TO SEEK AN APPT WITH PCP PIYUSH. D/C'D IV, CANNULA INTACT, NO COMPLICATIONS. BELONGINGS GATHERED BY PT AND SENT WITH PT. PT LEFT IN PRIVATE VEHICLE ACCOMPANIED BY SPOUSE. PT LEFT FLOOR AT 1700.
[2020-12-26] MEDS ORDERED: ALENDRONATE 70MG TABLET PO SCH (19:35)
== END 2020-12-22 17:05 | disposition left against medical advice (07) | DRG 111 ==
LOC: ER 21:45 → UNDOADMIN 12-21 06:18 → ED HOLD 12-21 06:18 → ORTHO 4S 12-21 14:27 → ED HOLD 12-21 14:27 → UNDODISIN 12-22 17:05
PROVIDERS: ADMIT Internal Medicine; ATTEND Internal Medicine
PROC: 05HY33Z Insertion of Infusion Device into Upper Vein, Percutaneous Approach (ICD-10-PCS; principal; 2020-12-20)
PROC: B54MZZA Ultrasonography of Right Upper Extremity Veins, Guidance (ICD-10-PCS; 2020-12-20)
PROC: B3251ZZ Computerized Tomography (CT Scan) of Bilateral Common Carotid Arteries using Low Osmolar Contrast (ICD-10-PCS; 2020-12-21)
PROC: B32G1ZZ Computerized Tomography (CT Scan) of Bilateral Vertebral Arteries using Low Osmolar Contrast (ICD-10-PCS; 2020-12-21)
PROC: B32R1ZZ Computerized Tomography (CT Scan) of Intracranial Arteries using Low Osmolar Contrast (ICD-10-PCS; 2020-12-21)
PROC: B3281ZZ Computerized Tomography (CT Scan) of Bilateral Internal Carotid Arteries using Low Osmolar Contrast (ICD-10-PCS; 2020-12-21)
DX: R42 Dizziness and giddiness (principal); M32.9 Systemic lupus erythematosus, unspecified; E03.9 Hypothyroidism, unspecified; E78.00 Pure hypercholesterolemia, unspecified; E78.5 Hyperlipidemia, unspecified; Z53.29 Procedure and treatment not carried out because of patient's decision for other reasons; F32.9 Major depressive disorder, single episode, unspecified; G89.4 Chronic pain syndrome; I65.23 Occlusion and stenosis of bilateral carotid arteries; K21.9 Gastro-esophageal reflux disease without esophagitis; N18.30 Chronic kidney disease, stage 3 unspecified; Z86.73 Personal history of transient ischemic attack (TIA), and cerebral infarction without residual deficits; Z90.710 Acquired absence of both cervix and uterus
CPT/HCPCS: 36415; 70450; 70496; 70498; 71045; 80053; 80061; 81003; 83735; 83880; 84484; 85025; 87081; 93005; 93306; 96361; 96365; 96366; 96375; 97161; 97530; 97535; 99285; G0378; J1644; J2060; J2405; J3475; J7030; J7512; J7517; J8597; Q9967

== ENCOUNTER 2021-03-19 15:29 | Emergency (ER) | payer MEDICAID ==
[~2021-03-19] VITALS: Ht 172.7 cm; Wt 95.5 kg
[~2021-03-19 15:29] MED LIST changes: +ALEN70TA80 PO; -AMMO225L14 TOP; -ASPI-1071 PO; +ASPI81TA52 PO; +ATOR80TA PO; -CELE-193 PO; -CEPH250T PO; -CHOL200074 PO; -ERGO500041 PO; -ESOM40CA49 PO; -EST1T PO; +LEVO100T PO; -LEVO88TA2 PO; -LORA-269 PO; -MELO15TA13 PO; +MONT-40 PO; +OXYB-58 PO; -PHEN-716 PO; +SENN-283 PO; -SPIR25TA PO; -TRAM50TA2 PO; +TRAZ-256 PO; -TRAZ150T78 PO; +ZOLP6.252 PO
[2021-03-19 16:09] LABS: BASOPHILS % (AUTO) 0.4 % (0-1); EOSINOPHILS % (AUTO) 0.1 % (0-6); HEMATOCRIT 38.8 % (35.0-45.0); HEMOGLOBIN 12.5 g/dl (12.0-16.0); LYMPHOCYTES # (AUTO) 1.8 X10'3 (1.1-4.8); LYMPHOCYTES % (AUTO) 37.4 % (21-51); MEAN CORPUSCULAR HEMOGLOBIN 25.4 PG (27.0-31.0); MEAN CORPUSCULAR HGB CONC 32.2 g/dL (33.0-36.5); MEAN PLATELET VOLUME 9.4 FL (7.4-10.4); MONOCYTES # (AUTO) 0.5 X10'3 (0-0.9); NEUTROPHILS # (AUTO) 2.4 X10'3 (1.8-7.7); NEUTROPHILS % (AUTO) 51.1 % (42-75); PLATELET COUNT 225 X10'3 (140-440); RED BLOOD COUNT 4.92 X10'6 (4.20-5.60); RED CELL DISTRIBUTION WIDTH 15.3 % (11.5-14.5); WHITE BLOOD COUNT 4.7 X10'3 (4.5-11.0)
[2021-03-19 16:24] LABS: ALANINE AMINOTRANSFERASE 13 U/L (12-78); ALBUMIN 3.8 G/DL (3.4-5.0); ALBUMIN/GLOBULIN RATIO 0.9 (1.1-1.5); ALKALINE PHOSPHATASE 82 IU/L (46-116); ANION GAP 9 (8-16); ASPARTATE AMINO TRANSFERASE 22 U/L (10-37); BILIRUBIN,TOTAL 0.5 MG/DL (0.1-1.0); BLOOD UREA NITROGEN 13 MG/DL (7-18); BUN/CREATININE RATIO 11.6 (6.6-38.0); CALCIUM 8.5 MG/DL (8.5-10.1); CHLORIDE 106 MMOL/L (99-107); CREATININE 1.12 MG/DL (0.40-0.90); GLUCOSE 94 MG/DL (70-104); LIPASE 195 U/L (73-393); POTASSIUM 3.6 MMOL/L (3.5-5.1); SODIUM 144 MMOL/L (135-145); TOTAL CARBON DIOXIDE 29.1 MMOL/L (24-32); TOTAL PROTEIN 7.9 G/DL (6.4-8.2); eGFR 51 ML/MIN
[2021-03-19 16:39] LABS: URINE HCG NEGATIVE (NEG)
[2021-03-19 16:43] LABS: CLARITY,URINE CLEAR (Clear); COLOR,URINE STRAW (Yellow); GLUCOSE, URINE NEGATIVE (Neg); KETONES,URINE NEGATIVE (Neg); LEUKOCYTE ESTERASE ,URINE NEGATIVE (Neg); NITRITES, URINE NEGATIVE (Neg); OCCULT BLOOD,URINE NEGATIVE (Neg); PROTEIN,URINE NEGATIVE (Neg); UA COLLECTION TYPE CLN CATCH MIDSTREAM; UROBILINOGEN,URINE 0.2 E.U/dL (0.2-1.0)
[2021-03-19 19:15] VITALS: BP 151/97
[2021-03-19] MEDS ORDERED: iohexol 300mg/ml 100ml inj. ONE (19:32)
== END 2021-03-19 21:42 | disposition home or self-care (01) ==
LOC: ER 15:30
DX: R31.9 Hematuria, unspecified (principal); M54.6 Pain in thoracic spine; N93.9 Abnormal uterine and vaginal bleeding, unspecified; R42 Dizziness and giddiness; R11.2 Nausea with vomiting, unspecified; E78.00 Pure hypercholesterolemia, unspecified; Z86.73 Personal history of transient ischemic attack (TIA), and cerebral infarction without residual deficits; Z90.710 Acquired absence of both cervix and uterus; Z88.0 Allergy status to penicillin; Z79.82 Long term (current) use of aspirin; Z79.2 Long term (current) use of antibiotics; Z79.899 Other long term (current) drug therapy
CPT/HCPCS: 36415; 74176; 80053; 81003; 81025; 83690; 85025; 99284; 99285; Q9967

== ENCOUNTER 2021-03-21 00:57 | Emergency (ER) | payer MEDICAID ==
[~2021-03-21] VITALS: Ht 172.7 cm; Wt 93.0 kg
[2021-03-21 01:06] VITALS: BP 125/70
[2021-03-21 02:20] LABS: UA COLLECTION TYPE CLN CATCH MIDSTREAM
[2021-03-21 02:21] LABS: CLARITY,URINE CLOUDY (Clear); COLOR,URINE YELLOW (Yellow); GLUCOSE, URINE NEGATIVE (Neg); KETONES,URINE NEGATIVE (Neg); OCCULT BLOOD,URINE LARGE (Neg); PROTEIN,URINE 30 mg/dl (Neg)
[2021-03-21 02:22] LABS: LEUKOCYTE ESTERASE ,URINE SMALL (Neg); NITRITES, URINE NEGATIVE (Neg); UROBILINOGEN,URINE 0.2 E.U/dL (0.2-1.0)
[2021-03-21 02:33] LABS: BACTERIA,URINE FEW /HPF (Neg); MUCUS STRANDS NONE SEEN /LPF (Neg); SQUAMOUS EPITHELIAL CELL,UR FEW /LPF (FEW); WBC,URINE TNTC /HPF (0-4)
[2021-03-21] MEDS ORDERED: CEPH-585 PO (03:29)
[2021-03-21] MEDS ORDERED: PHEN-786 PO (03:32)
[2021-03-21] MEDS ORDERED: NITR100C6 PO (03:37)
[2021-03-21] MEDS: sulfamethoxazole/trimethoprim DS (800/160mg) tablet PO ONE (03:42)
== END 2021-03-21 03:46 | disposition home or self-care (01) ==
LOC: ER 00:58
DX: N39.0 Urinary tract infection, site not specified (principal); R31.9 Hematuria, unspecified; E78.00 Pure hypercholesterolemia, unspecified; I51.9 Heart disease, unspecified; Z88.0 Allergy status to penicillin; Z79.899 Other long term (current) drug therapy
CPT/HCPCS: 81001; 85025; 87077; 87088; 87186; 99283

== ENCOUNTER 2021-07-31 13:42 | Emergency (ER) | payer MEDICAID ==
[~2021-07-31] VITALS: Ht 172.7 cm; Wt 98.9 kg
[~2021-07-31 13:42] MED LIST changes: +CEPH-585 PO; +NITR100C6 PO; +PHEN-786 PO
[2021-07-31 13:43] VITALS: BP 131/72
[2021-07-31 14:16] LABS: BASOPHILS % (AUTO) 0.5 % (0-1); EOSINOPHILS % (AUTO) 0.4 % (0-6); HEMATOCRIT 35.1 % (35.0-45.0); HEMOGLOBIN 11.3 g/dl (12.0-16.0); LYMPHOCYTES # (AUTO) 1.5 X10'3 (1.1-4.8); LYMPHOCYTES % (AUTO) 34.6 % (21-51); MEAN CORPUSCULAR HEMOGLOBIN 24.8 PG (27.0-31.0); MEAN CORPUSCULAR VOLUME 77.4 FL (78-98); MEAN PLATELET VOLUME 9.5 FL (7.4-10.4); MONOCYTES # (AUTO) 0.6 X10'3 (0-0.9); MONOCYTES % (AUTO) 14.2 % (2-12); NEUTROPHILS # (AUTO) 2.2 X10'3 (1.8-7.7); NEUTROPHILS % (AUTO) 50.3 % (42-75); PLATELET COUNT 193 X10'3 (140-440); RED BLOOD COUNT 4.54 X10'6 (4.20-5.60); RED CELL DISTRIBUTION WIDTH 15.7 % (11.5-14.5); WHITE BLOOD COUNT 4.3 X10'3 (4.5-11.0)
[2021-07-31 14:40] LABS: D-DIMER 0.51 MG/L FEU (0-0.50)
[2021-07-31 14:43] LABS: ALANINE AMINOTRANSFERASE 16 U/L (12-78); ALBUMIN 3.4 G/DL (3.4-5.0); ALBUMIN/GLOBULIN RATIO 1.1 (1.1-1.5); ALKALINE PHOSPHATASE 75 IU/L (46-116); ANION GAP 7 (8-16); ASPARTATE AMINO TRANSFERASE 21 U/L (10-37); BILIRUBIN,TOTAL 0.4 MG/DL (0.1-1.0); BLOOD UREA NITROGEN 11 MG/DL (7-18); BUN/CREATININE RATIO 10.5 (6.6-38.0); CALCIUM 8.7 MG/DL (8.5-10.1); CHLORIDE 108 MMOL/L (99-107); CREATININE 1.05 MG/DL (0.40-0.90); GLUCOSE 74 MG/DL (70-104); POTASSIUM 3.8 MMOL/L (3.5-5.1); SODIUM 144 MMOL/L (135-145); TOTAL CARBON DIOXIDE 29.1 MMOL/L (24-32); TOTAL PROTEIN 6.5 G/DL (6.4-8.2); eGFR 54 ML/MIN
[2021-07-31] MEDS ORDERED: HYDR-3972 PO (15:24)
== END 2021-07-31 15:47 | disposition home or self-care (01) ==
LOC: ER 13:42
DX: M79.662 Pain in left lower leg (principal); M25.562 Pain in left knee; R22.42 Localized swelling, mass and lump, left lower limb; R06.02 Shortness of breath; E78.00 Pure hypercholesterolemia, unspecified; Z86.73 Personal history of transient ischemic attack (TIA), and cerebral infarction without residual deficits; Z90.710 Acquired absence of both cervix and uterus; Z88.0 Allergy status to penicillin; Z79.82 Long term (current) use of aspirin; Z79.899 Other long term (current) drug therapy; Z79.2 Long term (current) use of antibiotics
CPT/HCPCS: 36415; 71045; 80053; 83880; 85025; 85379; 93005; 93971; 99285

== ENCOUNTER 2022-02-10 15:45 | Emergency (ER) | payer MEDICAID ==
[~2022-02-10] VITALS: Ht 172.7 cm; Wt 87.7 kg
[~2022-02-10 15:45] MED LIST changes: -ALBU6.7H9 INH; +BUDE10.2 INH; -CEPH-585 PO; -CYAN-51 PO; +DICLOFENAC CREAM TOP; -MECL-231 PO; -NITR100C6 PO; -OXYB-58 PO; -PHEN-786 PO; +ZOLP5TAB2 PO; -ZOLP6.252 PO
[2022-02-10 16:09] VITALS: BP 118/65
== END 2022-02-10 19:12 | disposition home or self-care (01) ==
LOC: ER 15:45
DX: T81.9XXA Unspecified complication of procedure, initial encounter (principal); E78.00 Pure hypercholesterolemia, unspecified; I51.9 Heart disease, unspecified; Z90.49 Acquired absence of other specified parts of digestive tract; Z88.0 Allergy status to penicillin; Z91.013 Allergy to seafood; Z79.82 Long term (current) use of aspirin; Z79.84 Long term (current) use of oral hypoglycemic drugs
CPT/HCPCS: 93971; 99284

== ENCOUNTER 2022-09-11 15:36 | Emergency (ER) | payer MEDICAID ==
[~2022-09-11] VITALS: Ht 172.7 cm; Wt 92.6 kg
[2022-09-11 15:38] VITALS: BP 128/53
[2022-09-11] MEDS ORDERED: oxyCODONE/APAP 10/325mg tablet PO ONE (15:55)
--- NOTE | 2022-09-11 16:33 | NUR ---
CHAPERONED JERAMIE KAYE FOR EXAM
[2022-09-11] MEDS ORDERED: morphine 4 MG/ML inj SYRINge IM ONE (17:15)
[2022-09-11] MEDS ORDERED: OXYC-150 PO (18:00)
== END 2022-09-11 18:12 | disposition home or self-care (01) ==
LOC: ER 15:36
DX: M54.59 Other low back pain (principal); R32 Unspecified urinary incontinence; R20.0 Anesthesia of skin; E78.00 Pure hypercholesterolemia, unspecified; Z88.0 Allergy status to penicillin; Z91.013 Allergy to seafood; Z79.899 Other long term (current) drug therapy; Z79.82 Long term (current) use of aspirin; Z90.49 Acquired absence of other specified parts of digestive tract
CPT/HCPCS: 72100; 72220; 96372; 99284; J2270

== ENCOUNTER 2022-10-18 09:10 | Outpatient (CLI) | payer MEDICAID ==
[~2022-10-18 09:10] MED LIST changes: +OXYC-150 PO
[2022-10-18 10:19] LABS: BASOPHILS % (AUTO) 0.6 % (0-1); EOSINOPHILS % (AUTO) 0.2 % (0-6); LYMPHOCYTES # (AUTO) 2.1 X10'3 (1.1-4.8); LYMPHOCYTES % (AUTO) 39.3 % (21-51); MEAN CORPUSCULAR HEMOGLOBIN 25.4 PG (27.0-31.0); MEAN CORPUSCULAR HGB CONC 31.7 g/dL (33.0-36.5); MEAN CORPUSCULAR VOLUME 80.1 FL (78-98); MEAN PLATELET VOLUME 9.5 FL (7.4-10.4); MONOCYTES # (AUTO) 0.7 X10'3 (0-0.9); MONOCYTES % (AUTO) 13.8 % (2-12); NEUTROPHILS # (AUTO) 2.4 X10'3 (1.8-7.7); NEUTROPHILS % (AUTO) 46.1 % (42-75); PRE OP HEMATOCRIT 35.8 % (35.0-45.0); PRE OP HEMOGLOBIN 11.3 g/dL (12.0-16.0); PRE OP PLATELET COUNT 217 X10'3 (140-440); RED BLOOD COUNT 4.47 X10'6 (4.20-5.60); RED CELL DISTRIBUTION WIDTH 15.8 % (11.5-14.5)
[2022-10-18] MEDS ORDERED: LIOT5TAB10 PO (10:23)
[2022-10-18] MEDS ORDERED: ESZO1TAB13 PO (10:23)
[2022-10-18] MEDS ORDERED: PRED20TA PO (10:23)
[2022-10-18 10:42] LABS: ALBUMIN 3.5 G/DL (3.4-5.0); ALBUMIN/GLOBULIN RATIO 1.2 (1.1-1.5); ALKALINE PHOSPHATASE 94 IU/L (46-116); BLOOD UREA NITROGEN 15 MG/DL (7-18); BUN/CREATININE RATIO 12.8 (10.0-20.0); CALCIUM 8.9 MG/DL (8.5-10.1); CHLORIDE 107 MMOL/L (99-107); CREATININE 1.17 MG/DL (0.40-0.90); PRE OP ALT 20 U/L (30-65); PRE OP ANION GAP 8 (8-16); PRE OP AST 23 U/L (10-37); PRE OP BILIRUB, TOTAL 0.4 MG/DL (0.0-1.0); PRE OP GLUCOSE 75 MG/DL (70-104); PRE OP POTASSIUM 3.8 MMOL/L (3.4-5.1); PRE OP SODIUM 144 MMOL/L (135-145); TOTAL CARBON DIOXIDE 28.6 MMOL/L (24-32); TOTAL PROTEIN 6.4 G/DL (6.4-8.2); eGFR 48 ML/MIN
== END 2022-10-18 23:59 | disposition home or self-care (01) ==
LOC: LAB 09:10 → EDSTATUS 10-24 09:00
PROVIDERS: ATTEND Orthopaedic Surgery
DX: Z01.818 Encounter for other preprocedural examination (principal); S43.431D Superior glenoid labrum lesion of right shoulder, subsequent encounter; M75.111 Incomplete rotator cuff tear or rupture of right shoulder, not specified as traumatic; R00.1 Bradycardia, unspecified; X58.XXXD Exposure to other specified factors, subsequent encounter
CPT/HCPCS: 36415; 80053; 85025; 93005

== ENCOUNTER 2022-12-19 05:56 | Inpatient (IN) | payer MEDICAID ==
[2022-12-12 12:19] LABS: BASOPHILS % (AUTO) 0.5 % (0-1); EOSINOPHILS % (AUTO) 0.2 % (0-6); LYMPHOCYTES # (AUTO) 2.4 X10'3 (1.1-4.8); LYMPHOCYTES % (AUTO) 37.8 % (21-51); MEAN CORPUSCULAR HEMOGLOBIN 25.7 PG (27.0-31.0); MEAN CORPUSCULAR VOLUME 80.2 FL (78-98); MEAN PLATELET VOLUME 9.7 FL (7.4-10.4); MONOCYTES # (AUTO) 0.7 X10'3 (0-0.9); MONOCYTES % (AUTO) 11.7 % (2-12); NEUTROPHILS # (AUTO) 3.2 X10'3 (1.8-7.7); NEUTROPHILS % (AUTO) 49.8 % (42-75); PRE OP HEMATOCRIT 39.1 % (35.0-45.0); PRE OP HEMOGLOBIN 12.5 g/dL (12.0-16.0); PRE OP PLATELET COUNT 216 X10'3 (140-440); PRE OP WHITE BLOOD COUNT 6.4 10'3 (4.8-10.8); RED BLOOD COUNT 4.88 X10'6 (4.20-5.60); RED CELL DISTRIBUTION WIDTH 15.8 % (11.5-14.5)
[2022-12-12 12:45] LABS: ALBUMIN 3.8 G/DL (3.4-5.0); ALBUMIN/GLOBULIN RATIO 1.2 (1.1-1.5); ALKALINE PHOSPHATASE 100 IU/L (46-116); BLOOD UREA NITROGEN 26 MG/DL (7-18); CALCIUM 9.3 MG/DL (8.5-10.1); CHLORIDE 104 MMOL/L (99-107); CREATININE 1.18 MG/DL (0.40-0.90); PRE OP ALT 25 U/L (30-65); PRE OP ANION GAP 8 (8-16); PRE OP AST 26 U/L (10-37); PRE OP BILIRUB, TOTAL 0.3 MG/DL (0.0-1.0); PRE OP GLUCOSE 97 MG/DL (70-104); PRE OP POTASSIUM 4.3 MMOL/L (3.4-5.1); PRE OP SODIUM 139 MMOL/L (135-145); THYROID STIMULATING HORMONE 0.23 ulU/ml (0.34-4.50); TOTAL CARBON DIOXIDE 27.4 MMOL/L (24-32); TOTAL PROTEIN 6.9 G/DL (6.4-8.2); eGFR 47 ML/MIN
[2022-12-19] VITALS (29 sets, daily range): BP systolic 97–127; BP diastolic 49–74; PULSE 60–91; RESP 11–19; TEMP 97.1–98.2; O2SAT 93–100
[~2022-12-19] VITALS: Ht 172.7 cm; Wt 85.5 kg
[~2022-12-19 05:56] MED LIST changes: +ALBU6.7H14 INH; -BUDE10.2 INH; +CELE-85 PO; -DICLOFENAC CREAM TOP; +ESZO1TAB13 PO; +FERR325T7 PO; +LIOT5TAB10 PO; -MONT-40 PO; -OXYC-150 PO; -PRED5TAB PO; -TRAZ-256 PO; -ZOLP5TAB2 PO; +cefazolin 2gm/D5W 100mL 100 ML IV ONE; +famotidine 20mg tablet PO ONE; +ringers solution, lacted 1,000 ML IV SCH; +tranexamic acid 650mg tablet PO ONE; +vancomycin 1,500 MG in NS 300ml IV soln IV ONE
[2022-12-19] MEDS ORDERED: clindamycin 600mg/D5W 50ml 50 ML IV ONE (07:15)
[2022-12-19] MEDS ORDERED: morphine 4 MG/ML inj SYRINge IV PRN (07:25)
[2022-12-19] MEDS ORDERED: hydrALAZINE 20mg/ml inj. IV PRN (07:25)
[2022-12-19] MEDS ORDERED: proCHLORperazine 10 MG/2 ml inj IV PRN (07:25)
[2022-12-19] MEDS ORDERED: morphine 2 MG/ML inj. syringe IV PRN (07:25)
[2022-12-19] MEDS ORDERED: ketorolac trometh. 30mg/ml inj. IV ONE (07:25)
[2022-12-19] MEDS ORDERED: ondansetron/PF 4mg/2ml inj IV PRN ×2 (07:25→09:05)
[2022-12-19] MEDS ORDERED: labetalol 20mg/4ml (5mg/ml) syringe IV PRN (07:25)
[2022-12-19] MEDS ORDERED: ROPIVAcaine 0.2% (10 MG/5 ML) BOLUS INJECTION INTERSCALE PRN (07:25)
[2022-12-19] MEDS ORDERED: acetaminophen 1,000mg/100ml IV 100 ML IV PRN (07:25)
[2022-12-19] MEDS ORDERED: ROPIVAcaine 0.2%/PF PUMP/bolus 545 ML INTERSCALE SCH (07:25)
[2022-12-19] MEDS ORDERED: meperidine/PF 25mg/ml syringe IV PRN (07:25)
[2022-12-19] MEDS ORDERED: ringers solution, lacted 1,000 ML IV SCH (07:25)
[2022-12-19] MEDS ORDERED: HYDROmorphone/PF 0.2 MG/ML SYRINGE IV PRN ×2 (07:25)
[2022-12-19] MEDS ORDERED: midazolam 1 mg/ML 2ml injection ONE (08:20)
[2022-12-19] MEDS ORDERED: fentaNYL/PF 50MCG/1 ML 2ML syringe ONE (08:20)
[2022-12-19] MEDS ORDERED: ketorolac trometh. 30mg/ml inj. ONE (08:29)
[2022-12-19] MEDS ORDERED: ROPIVAcaine 0.5% (5mg/ml) 30ml vial ONE ×2 (08:30→09:24)
[2022-12-19] MEDS ORDERED: sevoflurane 250ml liquid IH ONE (08:44)
[2022-12-19] MEDS ORDERED: acetaminophen 325mg tablet PO PRN (09:05)
[2022-12-19] MEDS: potassium cl 20mEq in 1/2 NS 1,000 ML IV SCH ×2 (09:05→17:19)
[2022-12-19] MEDS ORDERED: HYDROmorphone inj. 0.5 MG/0.5 ML DISP.SYRIN IV PRN (09:05)
[2022-12-19] MEDS ORDERED: non-formulary drug (Alendronate Sodium 1 TAB) PO SCH (09:05)
[2022-12-19] MEDS ORDERED: bisacodyl 10mg suppository rectal RC PRN (09:05)
[2022-12-19] MEDS ORDERED: magnesium hydroxide 30ml (MOM) UD suspension PO PRN (09:05)
[2022-12-19] MEDS ORDERED: naloxone 0.4 mg/ml inj IV PRN (09:05)
[2022-12-19] MEDS ORDERED: HYDROcodone/acetaminophen 10/325mg tab PO PRN (09:05)
[2022-12-19] MEDS ORDERED: diphenhydrAMINE 25mg capsule PO PRN ×2 (09:05)
[2022-12-19] MEDS ORDERED: oxyCODONE IR 5mg (immed. release) tablet PO PRN (09:05)
[2022-12-19] MEDS ORDERED: LIDOcaine 2% (20mg/ml) 5ml vial ONE (09:24)
[2022-12-19] MEDS ORDERED: propofol inj 20 ML IV ONE (09:24)
[2022-12-19] MEDS ORDERED: dexamethasone sod phosphate 4mg/ml inj. ONE (09:25)
[2022-12-19] MEDS ORDERED: rocuronium 10mg/ml inj IV ONE (09:25)
[2022-12-19] MEDS ORDERED: LIDOcaine 1%/PF 5ML 10 MG/ML VIAL ONE (09:25)
[2022-12-19] MEDS ORDERED: ePHEDrine 50MG/ML INJ. ONE (09:25)
[2022-12-19] MEDS ORDERED: 0.9 % SODIUM CHLORIDE 10 ML VIAL ONE (09:25)
[2022-12-19] MEDS ORDERED: ondansetron/PF 4mg/2ml inj ONE (09:35)
[2022-12-19] MEDS ORDERED: ROPIVAcaine 0.5% (5mg/ml) 30ml vial IJ ONE (10:06)
[2022-12-19] MEDS ORDERED: ketorolac tromethamine 15mg/ml inj. IV ONE (10:24)
--- NOTE | 2022-12-19 10:46 | NUR ---
Received from OR via BED IN STABLE CONDITON , accompanied by Anesthesiologist and SUPERVISOR URANIUM PROCESSING report given by SUPERVISOR URANIUM PROCESSING AND Anesthesiolgist. Addendum: 12/19/22 at 1138 by Natividad Ferrer RN Amended: Links added.
--- NOTE | 2022-12-19 13:25 | NUR ---
Patient in room PAS IN 900. I have received report from Erna in recovery and had the opportunity to ask questions and assume patient care.
--- NOTE | 2022-12-19 13:26 | NUR ---
PATIENT DISCHARGED FROM PACU IN STABLE CONDITION AFTER REPORT GIVEN TO RN TAKING OVER PATIENTS CARE. PATIENT TRANSFERRED TO ROOM 4013B VIA BED WITH ESTUARDO AND JESSEE. Addendum: 12/19/22 at 1332 by Natividad Ferrer RN Amended: Links added.
[2022-12-19] MEDS: acetaminophen 325mg tablet PO SCH ×2 (13:59→19:46)
[2022-12-19] MEDS: clindamycin 600mg/D5W 50ml 50 ML IV SCH ×2 (13:59→19:47)
[2022-12-19] MEDS ORDERED: albuterol 2.5 MG/3 ML nebule NEB PRN (14:00)
[2022-12-19] MEDS: HYDROmorphone 1 mg/ml syringe IV PRN ×2 (16:00→20:09)
[2022-12-19] MEDS: hydrOXYzine 25 MG tablet PO SCH ×2 (17:19→21:00)
--- NOTE | 2022-12-19 18:16 | NUR ---
Problems reprioritized. Patient report given, questions answered & plan of care reviewed with
[2022-12-19] MEDS: oxyCODONE IR 5mg (immed. release) tablet PO PRN ×2 (19:06→23:52)
[2022-12-19] MEDS: hydroxychloroquine 200mg tablet PO SCH (19:46)
[2022-12-19] MEDS: mycophenolate mofetil 250mg capsule PO SCH (19:47)
[2022-12-19] MEDS ORDERED: vancomycin/NS 1 GM ADD-VANTAGE 250 ML IV SCH (20:00)
[2022-12-19] MEDS ORDERED: zolpidem 5mg tablet PO SCH (21:00)
[2022-12-19] MEDS ORDERED: sennosides 8.6mg tablet PO SCH (21:00)
[2022-12-19] MEDS ORDERED: atorvastatin 20mg tablet PO SCH (21:00)
[2022-12-20 02:00] VITALS: BP 99/53; PULSE 61; RESP 16; TEMP 97.9; O2SAT 95
[2022-12-20] MEDS: acetaminophen 325mg tablet PO SCH ×3 (02:44→13:14)
[2022-12-20] MEDS: potassium cl 20mEq in 1/2 NS 1,000 ML IV SCH ×2 (02:46→09:05)
[2022-12-20] MEDS: oxyCODONE IR 5mg (immed. release) tablet PO PRN ×2 (04:28→08:34)
[2022-12-20 06:00] VITALS: BP 100/50; PULSE 61; RESP 15; TEMP 98.3; O2SAT 97
[2022-12-20 06:10] LABS: ANION GAP 6 (8-16); CHLORIDE 105 MMOL/L (99-107); POTASSIUM 4.6 MMOL/L (3.5-5.1); SODIUM 135 MMOL/L (135-145); TOTAL CARBON DIOXIDE 23.8 MMOL/L (24-32)
[2022-12-20 06:13] LABS: BASOPHILS % (AUTO) 0.3 % (0-1); EOSINOPHILS % (AUTO) 0 % (0-6); HEMATOCRIT 31.7 % (35.0-45.0); LYMPHOCYTES # (AUTO) 2.1 X10'3 (1.1-4.8); LYMPHOCYTES % (AUTO) 19.1 % (21-51); MEAN CORPUSCULAR HEMOGLOBIN 25.7 PG (27.0-31.0); MEAN CORPUSCULAR HGB CONC 31.6 g/dL (33.0-36.5); MEAN CORPUSCULAR VOLUME 81.2 FL (78-98); MEAN PLATELET VOLUME 10.5 FL (7.4-10.4); MONOCYTES # (AUTO) 1.4 X10'3 (0-0.9); MONOCYTES % (AUTO) 12.6 % (2-12); NEUTROPHILS # (AUTO) 7.4 X10'3 (1.8-7.7); PLATELET COUNT 153 X10'3 (140-440); RED CELL DISTRIBUTION WIDTH 15.7 % (11.5-14.5); WHITE BLOOD COUNT 10.9 X10'3 (4.5-11.0)
[2022-12-20] MEDS: hydrOXYzine 25 MG tablet PO SCH ×2 (07:31→13:09)
[2022-12-20] MEDS: mycophenolate mofetil 250mg capsule PO SCH (07:33)
[2022-12-20] MEDS: hydroxychloroquine 200mg tablet PO SCH (07:39)
[2022-12-20 08:00] VITALS: RESP 15; O2SAT 97
[2022-12-20] MEDS ORDERED: non-formulary drug (Celecoxib 1 CAP) PO SCH (08:00)
[2022-12-20] MEDS ORDERED: furosemide 40mg tablet PO SCH (08:00)
[2022-12-20] MEDS ORDERED: FLUoxetine 20mg capsule PO SCH (08:00)
[2022-12-20] MEDS ORDERED: potassium chloride 8mEq ER tablet PO SCH (08:00)
[2022-12-20] MEDS ORDERED: ferrous sulfate 325mg tablet PO SCH (08:00)
[2022-12-20] MEDS ORDERED: levoTHYROXINE 100mcg tablet PO SCH (08:00)
[2022-12-20] MEDS ORDERED: liothyronine sod 5mcg tablet PO SCH (08:00)
[2022-12-20] MEDS ORDERED: sennosides/docusate sodium tablet PO SCH (08:00)
[2022-12-20] MEDS ORDERED: pantoprazole 40mg Tablet.DR PO SCH (08:00)
[2022-12-20] MEDS ORDERED: aspirin 325mg tablet PO SCH (08:30)
[2022-12-20 10:00] VITALS: BP 100/41; PULSE 63; RESP 14; TEMP 97.6; O2SAT 98
--- NOTE | 2022-12-20 11:43 | NUR ---
Joint surgery consult: Pt is s/p shoulder surgery per EMR. Pt seen at bedside this am. Provided verbal/written high protein nutrition education with RD contact information. Encouraged pt to reach out for any nutrition questions or concerns. Addendum: 12/20/22 at [address] Amended: Links added.
--- NOTE | 2022-12-20 13:00 | NUR ---
I have reviewed and agree with interventions, assessments, and documentation by Edith Forrester LVN.
--- NOTE | 2022-12-20 13:30 | NUR ---
Patient discharged home with spouse via POV. Personal belongings sent with including cane, questions answered. PIV dc'd, tip in tact. Patient alert and appropriate at the time of discharge.
[2022-12-20] MEDS ORDERED: celeCOXIB 100mg capsule PO SCH (20:00)
[2022-12-21] MEDS ORDERED: acetaminophen 325mg tablet PO PRN (09:05)
== END 2022-12-20 13:38 | disposition home or self-care (01) | DRG 322 ==
LOC: PAS IN 05:56 → ORTHO 4S 13:45
PROVIDERS: ADMIT Orthopaedic Surgery; ATTEND Orthopaedic Surgery
PROC: 0LS30ZZ Reposition Right Upper Arm Tendon, Open Approach (ICD-10-PCS; 2022-12-19)
PROC: 0RRJ00Z Replacement of Right Shoulder Joint with Reverse Ball and Socket Synthetic Substitute, Open Approach (ICD-10-PCS; principal; 2022-12-19 08:44)
DX: M75.121 Complete rotator cuff tear or rupture of right shoulder, not specified as traumatic (principal); M19.011 Primary osteoarthritis, right shoulder; M75.21 Bicipital tendinitis, right shoulder; M65.811 Other synovitis and tenosynovitis, right shoulder; Z79.899 Other long term (current) drug therapy
CPT/HCPCS: 36415; 80051; 80053; 82948; 84443; 85025; 87081; 97110; 97161; 97530; A4215; A4618; A7000; C1776; G0378; J0131; J1100; J1170; J1885; J2250; J2405; J2704; J2795; J3010; J3370; J3480; J3490; J7120; J7517; Q0177

== ENCOUNTER 2023-12-28 23:50 | Emergency (ER) | payer MEDICAID ==
[~2023-12-28] VITALS: Ht 172.7 cm; Wt 93.2 kg
[~2023-12-28 23:50] MED LIST changes: -ASPI81TA52 PO; +CELE-127 PO; -CELE-85 PO; -cefazolin 2gm/D5W 100mL 100 ML IV ONE; -famotidine 20mg tablet PO ONE; -ringers solution, lacted 1,000 ML IV SCH; -tranexamic acid 650mg tablet PO ONE; -vancomycin 1,500 MG in NS 300ml IV soln IV ONE
[2023-12-29 01:30] LABS: ALANINE AMINOTRANSFERASE 23 U/L (12-78); ALBUMIN 3.3 G/DL (3.4-5.0); ALBUMIN/GLOBULIN RATIO 1.1 (1.1-1.5); ALKALINE PHOSPHATASE 107 IU/L (46-116); ANION GAP 6 (8-16); ASPARTATE AMINO TRANSFERASE 27 U/L (10-37); BILIRUBIN,TOTAL 0.3 MG/DL (0.1-1.0); BLOOD UREA NITROGEN 17 MG/DL (7-18); BUN/CREATININE RATIO 18.5 (10.0-20.0); CALCIUM 8.4 MG/DL (8.5-10.1); CHLORIDE 110 MMOL/L (99-107); CREATININE 0.92 MG/DL (0.40-0.90); GLUCOSE 105 MG/DL (70-104); LIPASE 58 U/L (16-77); SODIUM 143 MMOL/L (135-145); TOTAL CARBON DIOXIDE 27.3 MMOL/L (24-32); TOTAL PROTEIN 6.4 G/DL (6.4-8.2); eCRCL 68 ML/MIN; eGFR 63 ML/MIN
[2023-12-29 01:34] LABS: BASOPHILS # (AUTO) 0.1 X10'3 (0-0.2); EOSINOPHILS # (AUTO) 0.1 X10'3 (0-0.9); EOSINOPHILS % (AUTO) 1.4 % (0-6); HEMATOCRIT 31.1 % (35.0-45.0); HEMOGLOBIN 9.6 g/dl (12.0-16.0); LYMPHOCYTES # (AUTO) 2.3 X10'3 (1.1-4.8); LYMPHOCYTES % (AUTO) 38.2 % (21-51); MEAN CORPUSCULAR HGB CONC 30.7 g/dL (33.0-36.5); MEAN PLATELET VOLUME 9.6 FL (7.4-10.4); MONOCYTES # (AUTO) 0.8 X10'3 (0-0.9); MONOCYTES % (AUTO) 13.8 % (2-12); NEUTROPHILS # (AUTO) 2.8 X10'3 (1.8-7.7); NEUTROPHILS % (AUTO) 45.6 % (42-75); PLATELET COUNT 209 X10'3 (140-440); RED BLOOD COUNT 4.14 X10'6 (4.20-5.60); RED CELL DISTRIBUTION WIDTH 16.9 % (11.5-14.5); WHITE BLOOD COUNT 6.1 X10'3 (4.5-11.0)
[2023-12-29] MEDS: normal saline 1000ml 1,000 ML IV ONE (01:45)
[2023-12-29] MEDS ORDERED: iohexol 300mg/ml 100ml inj. ONE (01:49)
[2023-12-29] MEDS: ondansetron/PF 4mg/2ml inj IV ONE (02:49)
[2023-12-29] MEDS: ketorolac trometh 15mg/ml vial 15 MG/ML ML IV ONE (02:50)
[2023-12-29 03:45] LABS: BILIRUBIN,URINE NEGATIVE (Neg); CLARITY,URINE CLEAR (Clear); COLOR,URINE YELLOW (Yellow); GLUCOSE, URINE NEGATIVE (Neg); KETONES,URINE NEGATIVE (Neg); LEUKOCYTE ESTERASE ,URINE NEGATIVE (Neg); NITRITES, URINE NEGATIVE (Neg); OCCULT BLOOD,URINE NEGATIVE (Neg); PROTEIN,URINE NEGATIVE (Neg); UA COLLECTION TYPE CLN CATCH MIDSTREAM; UROBILINOGEN,URINE 0.2 E.U/dL (0.2-1.0)
[2023-12-29 04:31] VITALS: BP 128/52; PULSE 87; RESP 15; TEMP 98.7; O2SAT 99
== END 2023-12-29 04:30 | disposition home or self-care (01) ==
LOC: ER 23:51
DX: N81.10 Cystocele, unspecified (principal); R10.30 Lower abdominal pain, unspecified; E78.00 Pure hypercholesterolemia, unspecified; Z86.73 Personal history of transient ischemic attack (TIA), and cerebral infarction without residual deficits; Z90.710 Acquired absence of both cervix and uterus; Z98.890 Other specified postprocedural states; Z79.899 Other long term (current) drug therapy; Z88.0 Allergy status to penicillin; Z88.1 Allergy status to other antibiotic agents; Z91.013 Allergy to seafood; Z87.440 Personal history of urinary (tract) infections
CPT/HCPCS: 36415; 74176; 80053; 81003; 83690; 85025; 96374; 96375; 99285; J1885; J2405; J7030; Q9967